=== PATIENT | female | born 1975 | race Two or more races ===

== ENCOUNTER 2016-12-31 07:36 | Emergency (ER) | payer OTHER ==
[2016-12-31 08:00] VITALS: BP 136/91; PULSE 70; TEMP 98.2; BMI 32.8
[2016-12-31] MEDS ORDERED: IBUPROFEN 600 MG TABLET (FP) PO ONE (08:35)
[2016-12-31] MEDS ORDERED: IBUPROFEN 400 MG TABLET (FP) PO ONE (08:40)
--- NOTE | 2016-12-31 08:52 | PDOC ---
History of Present Illness - General Chief Complaint: Pain Stated Complaint: JAW PAIN Time Seen by Provider: 12/31/16 08:23 History Source: Patient Exam Limitations: No Limitations - History of Present Illness Initial Comments: 12/31/16 08:57 41 yr female with c/o dental pain left lower jaw for month radiates up her cheek. Pt states she wears an implant and that causes pain to her lower jaw. Pt denies fever or chills no medical history or current meds, no allergies. Timing/Duration: getting worse Severity: mild Associated Symptoms: reports: denies symptoms Past History - Past Medical History Allergies/Adverse Reactions: Allergies Allergy/AdvReac Type Severity Reaction Status Date / Time No Known Allergies Allergy Verified 12/31/16 07:50 Home Medications: Ambulatory Orders Amoxicillin - [Amoxicillin 500mg Capsule -] 500 mg PO TID #21 capsule 12/31/16 Other medical history: DENIES. - Surgical History Cholecystectomy: Yes - Suicide/Smoking/Psychosocial Hx Smoking History: Current every day smoker Have you smoked in the past 12 months: Yes Number of Cigarettes Smoked Daily: 20 Information on smoking cessation initiated: No Review of Systems - Review of Systems Able to Perform ROS?: Yes Is the patient limited Croatian proficient: No Constitutional: No: Symptoms Reported HEENTM: Yes: See HPI Respiratory: No: Symptoms reported Cardiac (ROS): No: Symptoms Reported ABD/GI: No: Symptoms Reported : No: Symptoms Reported Musculoskeletal: No: Symptoms Reported Integumentary: No: Symptoms Reported *Physical Exam - Vital Signs Last Vital Signs Temp Pulse Resp BP Pulse Ox 98.2 F 70 17 136/91 99 12/31/16 07:56 12/31/16 07:56 12/31/16 07:56 12/31/16 07:56 12/31/16 07:56 - Physical Exam General Appearance: Yes: Nourished, Appropriately Dressed HEENT: positive: EOMI, KO, Other (poor dentition, plaque buildup lower teeth no evidence of abscess, tender to touch left lower jaw to molar ) Neck: positive: Supple. negative: Tender Respiratory/Chest: positive: Lungs Clear, Normal Breath Sounds Cardiovascular: positive: Regular Rhythm, Regular Rate Gastrointestinal/Abdominal: positive: Normal Bowel Sounds, Soft Musculoskeletal: positive: Normal Inspection Extremity: positive: Normal Capillary Refill, Normal Inspection, Normal Range of Motion Integumentary: positive: Normal Color, Dry, Warm Neurologic: positive: Fully Oriented, Alert, Normal Mood/Affect, Normal Response , Motor Strength 07/17 ED Treatment Course - Medications Given in the ED: ED Medications Discontinued Medications Generic Name Dose Route Start Last Admin Trade Name Javon PRN Reason Stop Dose Admin Ibuprofen 800 mg 12/31/16 08:35 12/31/16 08:43 Motrin - PO 12/31/16 08:36 800 mg ONCE ONE Administration Medical Decision Making - Medical Decision Making 12/31/16 09:02 cc: dental pain no fever or chills will give amoxicillin as directed gargle with warm salt water follow with [facility] as discussed 12/31/16 10:24 *DC/Admit/Observation/Transfer Diagnosis at time of Disposition: Dental infection - Discharge Dispostion Disposition: HOME Condition at time of disposition: Good - Prescriptions Prescriptions: Amoxicillin - [Amoxicillin 500mg Capsule -] 500 mg PO TID #21 capsule - Referrals Referrals: STAFF,NOT ON [Primary Care Provider] - - Patient Instructions Additional Instructions: please take the amoxicillin as directed gargle with warm salt water 4-5 times a day take over the counter ibuprofen or tylenol for pain follow at [facility] on [place], [place] [phone]
--- NOTE | 2016-12-31 13:00 | EKG ---
Test Reason : Blood Pressure : / mmHG Vent. Rate : 060 BPM Atrial Rate : 060 BPM P-R Int : 168 ms QRS Dur : 098 ms QT Int : 430 ms P-R-T Axes : 057 -01 027 degrees QTc Int : 430 ms POOR DATA QUALITY, INTERPRETATION MAY BE ADVERSELY AFFECTED NORMAL SINUS RHYTHM INFERIOR INFARCT , AGE UNDETERMINED CANNOT RULE OUT ANTERIOR INFARCT , AGE UNDETERMINED ABNORMAL ECG NO PREVIOUS ECGS AVAILABLE Confirmed by ROSA MARIA JIN, STEVE ([id number]) on 12/31/2016 12:59:54 PM Referred By: Confirmed By:STEVE CRANE MD
== END 2016-12-31 09:09 | disposition home or self-care (01) ==
LOC: JERFT 07:36
DX: K04.7 Periapical abscess without sinus (principal)
CPT/HCPCS: 93005; 93010; 99281-25

== ENCOUNTER 2018-03-30 09:12 | Emergency (ER) | payer OTHER ==
[2018-03-30 09:25] VITALS: BP 131/81; PULSE 98; TEMP 98.6; BMI 33.9
[2018-03-30] MEDS ORDERED: DEXAMETHASONE LIQUID 0.5 MG/5 ML 240 ML BULK BOTTLE PO ONE (10:10)
--- NOTE | 2018-03-30 10:10 | PDOC ---
History of Present Illness - General Chief Complaint: Sore Throat Stated Complaint: SORE THROAT Time Seen by Provider: 03/30/18 09:35 Past History - Past Medical History Allergies/Adverse Reactions: Allergies Allergy/AdvReac Type Severity Reaction Status Date / Time No Known Allergies Allergy Verified 03/30/18 10:03 Home Medications: Ambulatory Orders Ferrous Sulfate [Iron] 325 mg PO DAILY 09/12/17 Folic Acid 1 mg PO DAILY 09/12/17 Amoxicillin - [Amoxicillin 500mg Capsule -] 500 mg PO BID #14 capsule 03/30/18 Ibuprofen 800 mg PO TID #30 tablet 03/30/18 traMADol HCL [Ultram -] 50 mg PO BID #10 tablet MDD 2 03/30/18 COPD: No Dialysis: No - Surgical History Abdominal Surgery: Yes (tummy tuck/liposuction) Cholecystectomy: Yes - Immunization History Td Vaccination: No Immunization Up to Date: No - Suicide/Smoking/Psychosocial Hx Smoking History: Never smoked Have you smoked in the past 12 months: No Number of Cigarettes Smoked Daily: 10 Information on smoking cessation initiated: No Hx Alcohol Use: No Drug/Substance Use Hx: No Substance Use Type: None *Physical Exam - Vital Signs Last Vital Signs Temp Pulse Resp BP Pulse Ox 98.6 F 98 H 18 131/81 100 03/30/18 09:23 03/30/18 09:23 03/30/18 09:23 03/30/18 09:23 03/30/18 09:23 Moderate Sedation - Procedure Monitoring Vital Signs: Procedure Monitoring Vital Signs Temperature 98.6 F 03/30/18 09:23 Pulse Rate 98 H 03/30/18 09:23 Respiratory Rate 18 03/30/18 09:23 Blood Pressure 131/81 03/30/18 09:23 O2 Sat by Pulse Oximetry (%) 100 03/30/18 09:23 *DC/Admit/Observation/Transfer Diagnosis at time of Disposition: Dental infection Pharyngitis Qualifiers: Pharyngitis/tonsillitis etiology: unspecified etiology Qualified Code(s): J02.9 - Acute pharyngitis, unspecified - Discharge Dispostion Condition at time of disposition: Stable - Referrals Referrals: Frantz Evangelista MD [Primary Care Provider] - - Patient Instructions Printed Discharge Instructions: DI for Pharyngitis/Tonsillopharyngitis -- Adult Additional Instructions: You have strep throat. This is a bacterial infection. Please take the amoxicillin 500 mg twice a day for one week. Please finish the prescription even if you feel better. This will help with your dental pain as well. You may take Motrin 800 mg every 8 hours as needed for pain or fever. You may take the Tramadol 50mg twice a day for break through pain Warm water gargles and cough drops and just may also help her symptoms. Please throw way your toothbrush 3 days into treatment to prevent reinfection. Please follow up with your primary care doctor next week. Return to emergency department if you have worsening pain, difficulty swallowing , changes in your voice, lightheadedness, dizziness, or any changes in your symptoms. - Post Discharge Activity
[2018-03-30] MEDS ORDERED: DEXAMETHASONE SOD PHOSPHATE 10 MG/1 ML VIAL ONE (10:18)
== END 2018-03-30 10:24 | disposition home or self-care (01) ==
LOC: JERFT 09:12
DX: K04.7 Periapical abscess without sinus (principal); J02.9 Acute pharyngitis, unspecified; Z87.891 Personal history of nicotine dependence
CPT/HCPCS: 99281-25

== ENCOUNTER 2018-05-23 18:03 | Emergency (ER) | payer OTHER ==
[2018-05-23 18:18] VITALS: BP 126/74; PULSE 97; TEMP 99.2; BMI 38.7
--- NOTE | 2018-05-23 18:18 | PDOC ---
Rapid Medical Evaluation Time Seen by Provider: 05/23/18 18:14 Medical Evaluation: Allergies Allergy/AdvReac Type Severity Reaction Status Date / Time No Known Allergies Allergy Verified 03/30/18 10:03 05/23/18 18:14 I have performed a brief in-person evaluation of this patient. The patient presents with a chief complaint of: coughing x 3 days. Also reports shortness of breath with ambulation subjective fever and chills. Cough is non productive. Smoker Pertinent physical exam findings: NAD increase respirations, frequent coughing in triage clear lungs bilaterally I have ordered the following: urine , chest xray The patient will proceed to the ED for further evaluation. Discharge Disposition - Diagnosis Shortness of breath - Referrals - Patient Instructions - Post Discharge Activity
[2018-05-23] MEDS ORDERED: ACETAMINOPHEN 500 MG TABLET (FP) PO ONE (21:11)
--- NOTE | 2018-05-23 21:12 | PDOC ---
History of Present Illness - General Chief Complaint: Cold Symptoms Stated Complaint: SHORT OF BREATH Time Seen by Provider: 05/23/18 18:14 - History of Present Illness Initial Comments: 05/23/18 21:09 43-year-old female with cough 3 days no comorbidities Past History - Past Medical History Allergies/Adverse Reactions: Allergies Allergy/AdvReac Type Severity Reaction Status Date / Time No Known Allergies Allergy Verified 05/23/18 18:14 Home Medications: Ambulatory Orders Ferrous Sulfate [Iron] 325 mg PO DAILY 09/12/17 Folic Acid 1 mg PO DAILY 09/12/17 Amoxicillin - [Amoxicillin 500mg Capsule -] 500 mg PO BID #14 capsule 03/30/18 Ibuprofen 800 mg PO TID #30 tablet 03/30/18 traMADol HCL [Ultram -] 50 mg PO BID #10 tablet MDD 2 03/30/18 Guaifenesin Dm [Mucinex Dm -] 1 tab PO BID #60 tab.er.12h 05/23/18 COPD: No Dialysis: No - Surgical History Abdominal Surgery: Yes (tummy tuck/liposuction) Cholecystectomy: Yes - Immunization History Td Vaccination: No Immunization Up to Date: No - Suicide/Smoking/Psychosocial Hx Smoking History: Never smoked Have you smoked in the past 12 months: No Number of Cigarettes Smoked Daily: 10 Hx Alcohol Use: No Drug/Substance Use Hx: No Substance Use Type: None Review of Systems - Review of Systems Constitutional: Yes: Chills, Malaise, Night Sweats. No: Fever HEENTM: Yes: Nose Congestion Respiratory: Yes: Cough *Physical Exam - Vital Signs Last Vital Signs Temp Pulse Resp BP Pulse Ox 99.2 F 97 H 16 126/74 100 05/23/18 18:15 05/23/18 18:15 05/23/18 18:15 05/23/18 18:15 05/23/18 18:15 - Physical Exam Comments: 05/23/18 21:10 HEAD: NC/AT EYES: Conjuntiva clear Ears: Canals and TM's normal NOSE: No d/c THROAT: Moist mucous membrances, oral pharanx clear, uvula midline NECK: Supple without adenopathy CARDIAC: S1 S2 LUNGS: CTA Full and Equal breath sounds ABDOMEN: Soft NT ND MS: Full ROM in all joints without edema NEUROLOGIC: No gross sensory or motor deficits, NVID SKIN: Normal color and temperature no lesions or rashes Moderate Sedation - Procedure Monitoring Vital Signs: Procedure Monitoring Vital Signs Temperature 99.2 F 05/23/18 18:15 Pulse Rate 97 H 05/23/18 18:15 Respiratory Rate 16 05/23/18 18:15 Blood Pressure 126/74 05/23/18 18:15 O2 Sat by Pulse Oximetry (%) 100 05/23/18 18:15 ED Treatment Course - ADDITIONAL ORDERS Additional order review: Laboratory Results 05/23/18 20:00 Urine HCG, Qual Negative Medical Decision Making - Medical Decision Making 05/23/18 21:10 Chest x-ray is clear there is no infiltrate. Exam is benign she has clear full breath sounds bilaterally. I will give her Mucinex for cough she is out of the window for treatment with Tamiflu I will have her follow-up with her primary care physician with instructions to return to the emergency room should symptoms worsen *DC/Admit/Observation/Transfer Diagnosis at time of Disposition: Viral upper respiratory infection Diagnosis at time of Disposition: (Ruled Out): Shortness of breath - Discharge Dispostion Disposition: HOME Condition at time of disposition: Stable Decision to Admit order: No - Prescriptions Prescriptions: Guaifenesin Dm [Mucinex Dm -] 1 tab PO BID #60 tab.er.12h - Referrals Referrals: Frantz Evangelista MD [Primary Care Provider] - - Patient Instructions Printed Discharge Instructions: DI for Viral Upper Respiratory Infection -- Adult Additional Instructions: Tylenol and Motrin as directed for fever. Mucinex as directed. Return to the emergency room for worsening symptoms and follow-up with your primary care physician in one to 2 days for further evaluation and treatment options. - Post Discharge Activity
[2018-05-23] MEDS ORDERED: ACETAMINOPHEN 500 MG TABLET (FP) ONE (21:20)
== END 2018-05-23 21:39 | disposition home or self-care (01) ==
LOC: JERFT 18:03
DX: J06.9 Acute upper respiratory infection, unspecified (principal); B97.89 Other viral agents as the cause of diseases classified elsewhere; F17.210 Nicotine dependence, cigarettes, uncomplicated
CPT/HCPCS: 71046-TC-FY; 84703; 99281-25

== ENCOUNTER 2019-03-07 18:11 | Emergency (ER) | payer OTHER ==
[2019-03-07 18:17] VITALS: BP 145/88; PULSE 100; TEMP 99.8; BMI 38.3
[2019-03-07] MEDS ORDERED: KETOROLAC TROMETHAMINE 30 MG/1 ML VIAL IM ONE (18:36)
[2019-03-07] MEDS ORDERED: DEXAMETHASONE LIQUID 0.5 MG/5 ML PO ONE (18:36)
--- NOTE | 2019-03-07 18:42 | PDOC ---
History of Present Illness - General Chief Complaint: Cold Symptoms Stated Complaint: COLD SYMPTOMS Time Seen by Provider: 03/07/19 18:24 History Source: Patient Exam Limitations: No Limitations - History of Present Illness Initial Comments: 03/07/19 18:39 43-year-old female denies past medical history presents complaining of sore throat, body aches, subjective fever and chills since yesterday. Able to tolerate fluids, denies abdominal pain, nausea, vomiting, diarrhea, chest pain, shortness of breath, rash, recent travel, recent sick contacts or any other symptoms. Has not taken any pain meds for her symptoms. ROS: GENERAL/CONSTITUTIONAL: Subjective fever, chills, body aches denies weakness, dizziness HEAD, EYES, EARS, NOSE AND THROAT: Throat pain, no changes in vision, No ear pain or discharge CARDIOVASCULAR: No chest pain RESPIRATORY: No shortness of breath or cough GASTROINTESTINAL: No pain, nausea, vomiting, diarrhea or constipation GENITOURINARY: No dysuria MUSCULOSKELETAL: No neck or back pain SKIN: No rash NEUROLOGIC: No headache, vertigo, loss of consciousness, or loss of sensation PE: GENERAL: well-appearing, NAD HEAD: NCAT EYES: Pupils equal, round and reactive to light, sclera anicteric, conjunctiva clear ENT: Normal bilateral ear canals, pharynx: Moderate erythema, mild exudate, uvula midline NECK: No neck swelling, supple CHEST: nontender RESP: clear, no w/r/r CARDIO: rrr, no m/g/r ABD: +BS, soft, nontender, non distended BACK: no midline spinal ttp, no CVAT EXTREMITIES: Normal range of motion, no edema NEUROLOGICAL: Normal speech, normal gait SKIN: No rash noted, warm, Dry Past History - Past Medical History Allergies/Adverse Reactions: Allergies Allergy/AdvReac Type Severity Reaction Status Date / Time No Known Allergies Allergy Verified 03/07/19 18:17 Home Medications: Ambulatory Orders Ferrous Sulfate [Iron] 325 mg PO DAILY 09/12/17 Folic Acid 1 mg PO DAILY 09/12/17 Amoxicillin - [Amoxicillin 500mg Capsule -] 500 mg PO BID #14 capsule 03/30/18 Ibuprofen 800 mg PO TID #30 tablet 03/30/18 traMADol HCL [Ultram -] 50 mg PO BID #10 tablet MDD 2 03/30/18 Guaifenesin Dm [Mucinex Dm -] 1 tab PO BID #60 tab.er.12h 05/23/18 COPD: No Dialysis: No - Surgical History Abdominal Surgery: Yes (tummy tuck/liposuction) Cholecystectomy: Yes - Immunization History Td Vaccination: No Immunization Up to Date: No - Psycho Social/Smoking Cessation Hx Smoking History: Current every day smoker Have you smoked in the past 12 months: No Number of Cigarettes Smoked Daily: 20 Information on smoking cessation initiated: No Hx Alcohol Use: No Drug/Substance Use Hx: No Substance Use Type: None *Physical Exam - Vital Signs Last Vital Signs Temp Pulse Resp BP Pulse Ox 99.8 F H 100 H 18 145/88 99 03/07/19 18:15 03/07/19 18:15 03/07/19 18:15 03/07/19 18:15 03/07/19 18:15 Medical Decision Making - Medical Decision Making 03/07/19 18:41 43-year-old female denies past medical history complaining of subjective fever, chills, sore throat and body aches since yesterday. IM Toradol 30 mg x 1 Decadron Flu swab and rapid strep throat swab obtained Reassess 03/07/19 19:51 Rapid strep positive We will treat with penicillin G IM Discharge home with strict return precautions Discharge - Discharge Information Problems reviewed: Yes Clinical Impression/Diagnosis: Strep throat Condition: Stable Disposition: HOME - Admission No - Follow up/Referral Referrals: Frantz Evangelista MD [Primary Care Provider] - - Patient Discharge Instructions Additional Instructions: Take ibuprofen 600 mg every 6 hours as needed for pain Drink plenty of fluids Return to ED if fever, throat pain, difficulty swallowing, difficulty speaking or any worsening symptom - Post Discharge Activity
[2019-03-07] MEDS ORDERED: DEXAMETHASONE SOD PHOSPHATE 10 MG/1 ML VIAL ONE (18:50)
[2019-03-07] MEDS ORDERED: KETOROLAC TROMETHAMINE 30 MG/1 ML VIAL ONE (18:50)
[2019-03-07] MEDS ORDERED: PENICILLIN G BENZATHINE 1,200,000 UNIT/2 ML PFS IM ONE ×2 (19:50→20:06)
== END 2019-03-07 20:11 | disposition home or self-care (01) ==
LOC: JERFT 18:11
PROC: 3E0233Z Introduction of Anti-inflammatory into Muscle, Percutaneous Approach (ICD-10-PCS; principal; 2019-03-07)
DX: J02.0 Streptococcal pharyngitis (principal); B95.0 Streptococcus, group A, as the cause of diseases classified elsewhere
CPT/HCPCS: 87804; 87880; 99281-25

== ENCOUNTER 2019-03-14 18:46 | Emergency (ER) | payer OTHER ==
[2019-03-14 19:16] VITALS: BP 121/76; PULSE 85; TEMP 97.9; BMI 39.1
--- NOTE | 2019-03-14 20:20 | PDOC ---
History of Present Illness - General Chief Complaint: Sore Throat Stated Complaint: SORE THROAT Time Seen by Provider: 03/14/19 19:27 - History of Present Illness Initial Comments: 03/14/19 20:20 44-year-old female without comorbidities recently treated for strep throat 2 days ago after treatment for the last 2 days she developed upper respiratory infection symptoms and flulike symptoms without fever Past History - Past Medical History Allergies/Adverse Reactions: Allergies Allergy/AdvReac Type Severity Reaction Status Date / Time No Known Allergies Allergy Verified 03/07/19 18:17 Home Medications: Ambulatory Orders Ferrous Sulfate [Iron] 325 mg PO DAILY 09/12/17 Folic Acid 1 mg PO DAILY 09/12/17 Amoxicillin - [Amoxicillin 500mg Capsule -] 500 mg PO BID #14 capsule 03/30/18 Ibuprofen 800 mg PO TID #30 tablet 03/30/18 traMADol HCL [Ultram -] 50 mg PO BID #10 tablet MDD 2 03/30/18 Guaifenesin Dm [Mucinex Dm -] 1 tab PO BID #60 tab.er.12h 05/23/18 COPD: No Dialysis: No - Surgical History Abdominal Surgery: Yes (tummy tuck/liposuction) Cholecystectomy: Yes - Immunization History Td Vaccination: No Immunization Up to Date: No - Psycho Social/Smoking Cessation Hx Smoking History: Current every day smoker Have you smoked in the past 12 months: No Number of Cigarettes Smoked Daily: 18 Information on smoking cessation initiated: Yes Hx Alcohol Use: No Drug/Substance Use Hx: No Substance Use Type: None Review of Systems - Review of Systems Constitutional: No: Fever HEENTM: Yes: Nose Congestion Respiratory: Yes: Cough *Physical Exam - Vital Signs Last Vital Signs Temp Pulse Resp BP Pulse Ox 97.9 F 85 20 121/76 100 03/14/19 19:13 03/14/19 19:13 03/14/19 19:13 03/14/19 19:13 03/14/19 19:13 - Physical Exam 03/14/19 20:20 GENERAL: The patient is awake, alert, and fully oriented, in no acute distress. HEAD: Normal with no signs of trauma. EYES: sclera anicteric, conjunctiva clear. ENT: Ears normal tympanic membranes normal oropharynx clear uvula midline NECK: Normal range of motion LUNGS: Breath sounds equal, clear to auscultation bilaterally. No wheezes, and no crackles. HEART: S1 and S2 without murmur, rub or gallop. ABDOMEN: Soft, nontender, normoactive bowel sounds. No guarding, no rebound. No masses. EXTREMITIES: Normal range of motion, no edema. No clubbing or cyanosis. No cords, erythema, or tenderness. NEUROLOGICAL: Cranial nerves II through XII grossly intact. Normal speech, normal gait. PSYCH: Normal mood, normal affect. SKIN: Warm, Dry, normal turgor, no rashes or lesions noted. Medical Decision Making - Medical Decision Making 03/14/19 20:28 Influenza negative most likely secondary viral upper respiratory infection after strep throat follow-up with primary care physician Discharge - Discharge Information Problems reviewed: Yes Clinical Impression/Diagnosis: Viral upper respiratory infection Condition: Stable Disposition: HOME - Admission No - Follow up/Referral Referrals: Gloria Evangelista [Primary Care Provider] - - Patient Discharge Instructions Additional Instructions: Tylenol Motrin for any pain and fevers. Return to the emergency room for worsening symptoms. Without fail please follow-up with your primary care physician in 2 to 3 days for further evaluation and treatment options. Your influenza swabs were negative today. - Post Discharge Activity
== END 2019-03-14 20:35 | disposition home or self-care (01) ==
LOC: JERFT 18:46
DX: J06.9 Acute upper respiratory infection, unspecified (principal); F17.210 Nicotine dependence, cigarettes, uncomplicated
CPT/HCPCS: 87804; 99281-25